=== PATIENT | male | born 1945 | race Caucasian/White ===

== ENCOUNTER 2025-01-06 22:01 | Inpatient (IN) | payer BC ==
[~2025-01-06] VITALS: Ht 182.9 cm; Wt 92.1 kg
[2025-01-06 23:12] LABS: SERUM AMMONIA 24 umol/L (11-32)
[2025-01-06 23:18] LABS: ALANINE AMINOTRANSFERASE 55 U/L (12-78); ALBUMIN 2.6 g/dL (3.4-5.0); ALKALINE PHOSPHATASE 240 U/L (46-116); ASPARTATE AMINOTRANSFERASE 210 U/L (15-37); BASOPHILS # (AUTO) 0.1 K/uL (0.0-0.2); BASOPHILS % (AUTO) 0.3 % (0.0-2.0); BILIRUBIN,DIRECT 3.3 mg/dL (0.0-0.2); BILIRUBIN,TOTAL 5.8 mg/dL (0.2-1.0); CARBON DIOXIDE 27 mmol/L (21-32); CHLORIDE 99 mmol/L (98-107); CREATININE 2.4 mg/dL (0.6-1.3); EOSINOPHILS # (AUTO) 0.2 K/uL (0.0-0.7); EOSINOPHILS % (AUTO) 0.7 % (0.0-6.0); GLUCOSE 134 mg/dL (74-106); HEMATOCRIT 43 % (39-51); LYMPHOCYTES # (AUTO) 2.7 K/uL (0.8-4.8); LYMPHOCYTES % (AUTO) 12.5 % (20.0-44.0); MEAN CORPUSCULAR HEMOGLOBIN 27 PG (26.0-33.0); MEAN CORPUSCULAR HGB CONC 33 g/dl (31.0-36.0); MEAN CORPUSCULAR VOLUME 83 fL (80-96); MONOCYTES # (AUTO) 1.6 K/uL (0.1-1.30); MONOCYTES % (AUTO) 7.6 % (2.0-12.0); NEUTROPHILS # (AUTO) 16.9 K/uL (1.8-8.9); NEUTROPHILS % (AUTO) 78.9 % (43.0-81.0); PLATELET COUNT (AUTO) 117 K/uL (150-450); POTASSIUM 3.7 mmol/L (3.5-5.1); RED BLOOD CELL COUNT(AUTO) 5.12 MIL/uL (4.5-6.0); RED CELL DISTRIBUTION WIDTH 14.8 % (11.5-15.0); SODIUM SERUM 140 mmol/L (136-145); WHITE BLOOD COUNT (AUTO) 21.4 K/uL (4.3-11.0)
[2025-01-06 23:19] LABS: APPEARANCE,URINE CLOUDY (CLEAR); BILIRUBIN,URINE 1+ (NEGATIVE); BLOOD, URINE 2+ Ery/uL (NEGATIVE); COLOR,URINE YELLOW (YELLOW); KETONES,URINE NEGATIVE (NEGATIVE); LEUKOCYTE ESTERASE ,URINE 3+ (NEGATIVE); NITRITE, URINE NEGATIVE (NEGATIVE); PROTEIN,URINE 1+ mg/dl (NEGATIVE); UGLUCOSE NEGATIVE (NEGATIVE)
[2025-01-06 23:21] LABS: LACTIC ACID 5.6 mmol/L (0.4-2.0); UREA NITROGEN, BLOOD 84 mg/dL (7-18)
[2025-01-06 23:24] LABS: INR 1.46 (0.91-1.10); PARTIAL THROMBOPLASTIN TIME 31.4 SEC (24.3-34.3); PROTHROMBIN TIME 15.1 SECS (9.2-11.1)
[2025-01-06 23:24] LABS: ADD URINE CULTURE YES; BACTERIA,URINE Many /HPF (None Seen); WBC,URINE 21-50 /HPF (0-3)
[2025-01-06 23:29] LABS: CALCIUM PHOSPHATE CRYSTALS,UR Few /HPF (None Seen); SQUAMOUS EPITHELIAL CELL,UR Few /HPF (None Seen); TRIPLE PHOSPHATE CRYSTAL,UR Few /HPF (None Seen)
[2025-01-06 23:33] LABS: AMPHETAMINE, URINE NEGATIVE (NEGATIVE); BARBITURATE, URINE NEGATIVE (NEGATIVE); BENZODIAZEPINE, URINE NEGATIVE (NEGATIVE); CANNABINOID, URINE NEGATIVE (NEGATIVE); COCCAINE, URINE NEGATIVE (NEGATIVE); OPIATE, URINE NEGATIVE (NEGATIVE); PHENCYCLIDINE SCREEN,URINE NEGATIVE (NEGATIVE)
[2025-01-07] MEDS: IV NS 0.9% 1,000 ML BAG IV ONE
[2025-01-07] MEDS ORDERED: CEFTRIAXONE 1GM BAG (ER ONLY) 1 GM/50 ML PIGGYBACK IV ONE
[2025-01-07] MEDS ORDERED: CEFTRIAXONE 1GM BAG (ER ONLY) 50 ML IV ONE (00:01)
[2025-01-07] MEDS ORDERED: CEFEPIME 1 GM VIAL ONE (00:13)
[2025-01-07] MEDS ORDERED: VANCOMYCIN 1 GM /D5W 250 ML PB IV ONE (00:14)
[2025-01-07] MEDS: CEFEPIME 1 GM in IV D5W 50 ML IV ONE (00:19)
[2025-01-07] MEDS: VANCOMYCIN 1 GM in IV D5W 250 ML IV ONE (00:50)
[2025-01-07 01:50] LABS: BASOPHILS % (MANUAL) 0 % (0.0-2.0); EOSINOPHILS % (MANUAL) 1 % (0-4); LYMPHOCYTES % (MANUAL) 11 % (16-48); MONOCYTES % (MANUAL) 7 % (0-11.0); NEUTROPHILS % (MANUAL) 81 (42-76); PLATELET ESTIMATE DECREASED
[2025-01-07] MEDS ORDERED: MAGNESIUM HYDROXIDE 30 ML UDC PO PRN (03:00)
[2025-01-07] MEDS ORDERED: ONDANSETRON HCL/PF 4 MG/2 ML VIAL IVP PRN (03:00)
[2025-01-07] MEDS ORDERED: MAG HYDROX/AL HYDROX/SIMETH 30 ML UDC PO PRN (03:00)
[2025-01-07] MEDS: IV NS 0.9% 1,000 ML IV SCH (07:21)
[2025-01-07] MEDS: VANCOMYCIN HCL 1.25 GM in IV D5W 250 ML IV ONE (07:36)
[2025-01-07 08:00] VITALS: BP 121/76; TEMP 97.5; O2SAT 99
[2025-01-07] MEDS: PANTOPRAZOLE 40 MG VIAL IV SCH (08:29)
[2025-01-07] MEDS: HEPARIN SODIUM, PORCINE 5000 UNITS/1 ML VIAL SQ SCH (08:30)
[2025-01-07 10:08] LABS: BASOPHILS # (AUTO) 0.1 K/uL (0.0-0.2); BASOPHILS % (AUTO) 0.5 % (0.0-2.0); EOSINOPHILS # (AUTO) 0.1 K/uL (0.0-0.7); EOSINOPHILS % (AUTO) 0.8 % (0.0-6.0); HEMATOCRIT 33 % (39-51); HEMOGLOBIN 11.2 g/dL (13.5-17.5); LYMPHOCYTES # (AUTO) 2.1 K/uL (0.8-4.8); LYMPHOCYTES % (AUTO) 13.4 % (20.0-44.0); MEAN CORPUSCULAR HEMOGLOBIN 29 PG (26.0-33.0); MEAN CORPUSCULAR HGB CONC 34 g/dl (31.0-36.0); MEAN CORPUSCULAR VOLUME 83 fL (80-96); MONOCYTES # (AUTO) 1.3 K/uL (0.1-1.30); MONOCYTES % (AUTO) 8.5 % (2.0-12.0); NEUTROPHILS # (AUTO) 12.2 K/uL (1.8-8.9); NEUTROPHILS % (AUTO) 76.8 % (43.0-81.0); PLATELET COUNT (AUTO) 84 K/uL (150-450); RED BLOOD CELL COUNT(AUTO) 3.92 MIL/uL (4.5-6.0); RED CELL DISTRIBUTION WIDTH 14.5 % (11.5-15.0); WHITE BLOOD COUNT (AUTO) 15.9 K/uL (4.3-11.0)
[2025-01-07 10:23] LABS: CALCIUM, SERUM 11.9 mg/dL (8.5-10.1); CREATININE 1.9 mg/dL (0.6-1.3); PHOSPHORUS 4.3 mg/dL (2.5-4.9); POTASSIUM 3.3 mmol/L (3.5-5.1)
[2025-01-07 11:11] LABS: BAND % (MANUAL) 2 % (0.0-5.0); EOSINOPHILS % (MANUAL) 1 % (0-4); LYMPHOCYTES % (MANUAL) 11 % (16-48); MONOCYTES % (MANUAL) 6 % (0-11.0); MYELOCYTES % 2 % (0-0); NEUTROPHILS % (MANUAL) 78 (42-76)
[2025-01-07 11:12] LABS: PLATELET ESTIMATE DECREASED
[2025-01-07 11:13] LABS: ANISOCYTOSIS 1+
[2025-01-07 12:00] VITALS: BP 123/77; TEMP 97.5; O2SAT 99
[2025-01-07 12:11] LABS: CREATININE, URINE 126.3 MG/DL (30.0-125.0); URINE TOTAL PROTEIN 91.2 mg/dL (0-11.9)
[2025-01-07] MEDS: CEFEPIME 1 GM in IV D5W 50 ML IV SCH (12:32)
[2025-01-07 16:00] VITALS: BP 119/71; TEMP 97.6; O2SAT 99
[2025-01-07] MEDS: POTASSIUM CHLORIDE 20 MEQ POWDER PACKET PO SCH (16:27)
[2025-01-07] MEDS: PAMIDRONATE 30 MG in IV NS 0.9% 500 ML IV ONE (16:28)
[2025-01-07] MEDS ORDERED: POTASSIUM CHLORIDE 20 MEQ POWDER PACKET NG SCH (16:30)
[2025-01-07 17:52] LABS: CALCIUM, SERUM 12.1 mg/dL (8.5-10.1); CREATININE 1.6 mg/dL (0.6-1.3); POTASSIUM 3.6 mmol/L (3.5-5.1)
[2025-01-07 17:57] LABS: FIBRINOGEN ACTIVITY 111 Mg/dL (213-485); INR 1.43 (0.91-1.10); PARTIAL THROMBOPLASTIN TIME 33.3 SEC (24.3-34.3); PROTHROMBIN TIME 14.8 SECS (9.2-11.1)
[2025-01-07 18:00] LABS: D-DIMER > 35.20 mg/L(FEU (0.17-0.50)
[2025-01-07 18:31] LABS: FREE PSA 77.82 ng/mL (0.00-45); PROSTATE SPECIFIC ANTIGEN SCR 532.23 ng/mL (0.00-4.00)
[2025-01-07 18:47] LABS: RHEUMATOID FACTOR SCREEN NEGATIVE (NEGATIVE)
[2025-01-07 20:00] VITALS: BP 127/67; TEMP 98.4; O2SAT 96
[2025-01-08] VITALS: BP 119/67; TEMP 98.4; O2SAT 95
[2025-01-08 01:10] VITALS: BP 134/71; TEMP 98.2
[2025-01-08 01:38] VITALS: BP 136/70; TEMP 98.4
[2025-01-08 03:25] VITALS: BP 140/62; TEMP 98.2
[2025-01-08 03:46] VITALS: BP 147/73; TEMP 98.4
[2025-01-08 04:00] VITALS: BP 148/65; TEMP 97.9; O2SAT 96
[2025-01-08] MEDS: METOPROLOL TARTRATE INJ 5 MG/5 ML AMPUL IVP ONE (05:02)
[2025-01-08] MEDS: IV NS 0.9% 1,000 ML IV PRN (05:55)
[2025-01-08 07:34] LABS: BILIRUBIN,TOTAL 2.9 mg/dL (0.2-1.0); CALCIUM, SERUM 11.6 mg/dL (8.5-10.1); CREATININE 1.4 mg/dL (0.6-1.3); MAGNESIUM 1.8 mg/dL (1.8-2.4); PHOSPHORUS 3.7 mg/dL (2.5-4.9); POTASSIUM 3.8 mmol/L (3.5-5.1)
[2025-01-08 07:35] LABS: FIBRINOGEN ACTIVITY 248 Mg/dL (213-485); INR 1.23 (0.91-1.10); PARTIAL THROMBOPLASTIN TIME 31.8 SEC (24.3-34.3); PROTHROMBIN TIME 12.9 SECS (9.2-11.1)
[2025-01-08 07:38] LABS: BASOPHILS % (AUTO) 0.1 % (0.0-2.0); EOSINOPHILS # (AUTO) 0.1 K/uL (0.0-0.7); EOSINOPHILS % (AUTO) 1.3 % (0.0-6.0); HEMATOCRIT 31 % (39-51); HEMOGLOBIN 10.5 g/dL (13.5-17.5); LYMPHOCYTES # (AUTO) 1.4 K/uL (0.8-4.8); LYMPHOCYTES % (AUTO) 14.1 % (20.0-44.0); MEAN CORPUSCULAR HEMOGLOBIN 28 PG (26.0-33.0); MEAN CORPUSCULAR HGB CONC 34 g/dl (31.0-36.0); MEAN CORPUSCULAR VOLUME 83 fL (80-96); MONOCYTES # (AUTO) 1.1 K/uL (0.1-1.30); MONOCYTES % (AUTO) 10.7 % (2.0-12.0); NEUTROPHILS # (AUTO) 7.4 K/uL (1.8-8.9); NEUTROPHILS % (AUTO) 73.8 % (43.0-81.0); PLATELET COUNT (AUTO) 69 K/uL (150-450); RED BLOOD CELL COUNT(AUTO) 3.71 MIL/uL (4.5-6.0); RED CELL DISTRIBUTION WIDTH 14.7 % (11.5-15.0); WHITE BLOOD COUNT (AUTO) 10.1 K/uL (4.3-11.0)
[2025-01-08 07:43] LABS: D-DIMER > 35.20 mg/L(FEU (0.17-0.50)
[2025-01-08] MEDS: FINASTERIDE (5 MG) 5 MG TABLET PO SCH (08:53)
[2025-01-08] MEDS ORDERED: VANCOMYCIN HCL 1.25 GM in IV D5W 250 ML IV SCH (09:00)
[2025-01-08 09:26] LABS: BAND % (MANUAL) 1 % (0.0-5.0); LYMPHOCYTES % (MANUAL) 16 % (16-48); NEUTROPHILS % (MANUAL) 72 (42-76)
[2025-01-08 09:27] LABS: EOSINOPHILS % (MANUAL) 2 % (0-4); METAMYELOCYTES % 1 % (0-0); MONOCYTES % (MANUAL) 7 % (0-11.0); MYELOCYTES % 1 % (0-0); PLATELET ESTIMATE DECREASED
[2025-01-08 09:28] LABS: ANISOCYTOSIS 1+
[2025-01-08] MEDS: VANCOMYCIN HCL 1.25 GM in IV D5W 250 ML IV SCH (11:08)
[2025-01-08] MEDS: SOTALOL AF 80 MG TABLET PO SCH (11:53)
[2025-01-08 14:09] LABS: HIV-1 p24 ANTIGEN NON REACTIVE (NONREACTIVE); HIV-1/2 ANTIBODY NON REACTIVE (NONREACTIVE)
[2025-01-08 15:40] LABS: OCCULT BLOOD STOOL NEGATIVE (NEGATIVE)
[2025-01-08] MEDS: PAMIDRONATE 30 MG in IV NS 0.9% 500 ML IV ONE (18:09)
[2025-01-08] MEDS: TAMSULOSIN 0.4 MG CAP.SR.24H PO SCH (21:53)
[2025-01-09 01:00] VITALS: BP 131/62; TEMP 97.5; O2SAT 96
[2025-01-09 04:36] VITALS: BP 128/71; TEMP 98.2; O2SAT 96
[2025-01-09 08:00] VITALS: BP 151/57; TEMP 98.1; O2SAT 97
[2025-01-09 08:03] LABS: BASOPHILS % (AUTO) 0.2 % (0.0-2.0); EOSINOPHILS # (AUTO) 0.2 K/uL (0.0-0.7); EOSINOPHILS % (AUTO) 1.8 % (0.0-6.0); HEMATOCRIT 32 % (39-51); HEMOGLOBIN 10.5 g/dL (13.5-17.5); LYMPHOCYTES # (AUTO) 1.2 K/uL (0.8-4.8); LYMPHOCYTES % (AUTO) 12.5 % (20.0-44.0); MEAN CORPUSCULAR HEMOGLOBIN 28 PG (26.0-33.0); MEAN CORPUSCULAR HGB CONC 33 g/dl (31.0-36.0); MEAN CORPUSCULAR VOLUME 84 fL (80-96); NEUTROPHILS # (AUTO) 7.5 K/uL (1.8-8.9); NEUTROPHILS % (AUTO) 75.5 % (43.0-81.0); PLATELET COUNT (AUTO) 68 K/uL (150-450); RED BLOOD CELL COUNT(AUTO) 3.76 MIL/uL (4.5-6.0); RED CELL DISTRIBUTION WIDTH 14.6 % (11.5-15.0); WHITE BLOOD COUNT (AUTO) 9.9 K/uL (4.3-11.0)
[2025-01-09 08:14] LABS: CALCIUM, SERUM 11.2 mg/dL (8.5-10.1); CREATININE 1.2 mg/dL (0.6-1.3); POTASSIUM 3.6 mmol/L (3.5-5.1)
[2025-01-09 08:19] LABS: FIBRINOGEN ACTIVITY 374 Mg/dL (213-485); PARTIAL THROMBOPLASTIN TIME 30.9 SEC (24.3-34.3); PROTHROMBIN TIME 12.6 SECS (9.2-11.1)
[2025-01-09 08:20] LABS: D-DIMER > 35.20 mg/L(FEU (0.17-0.50)
[2025-01-09] MEDS: ACETAMINOPHEN 325 MG TABLET PO PRN (10:41)
[2025-01-09 12:12] LABS: LYMPHOCYTES % (MANUAL) 20 % (16-48); MONOCYTES % (MANUAL) 5 % (0-11.0); MYELOCYTES % 4 % (0-0); NEUTROPHILS % (MANUAL) 71 (42-76); PLATELET ESTIMATE DECREASED
[2025-01-09 12:13] LABS: ANISOCYTOSIS 1+
[2025-01-09] MEDS ORDERED: IOHEXOL-300 100 ML VIAL IV ONE ×2 (14:24→19:06)
[2025-01-09] MEDS ORDERED: IV NS 0.9% 250 ML IV ONE ×2 (14:25→19:07)
[2025-01-09 16:00] VITALS: BP 106/63; TEMP 97.3; O2SAT 97
[2025-01-09 16:10] LABS: PTH, INTACT 6 pg/mL (15-65)
[2025-01-09] MEDS: PAMIDRONATE 30 MG in IV NS 0.9% 500 ML IV ONE (16:41)
[2025-01-09 20:00] VITALS: BP 128/66; TEMP 97.3; O2SAT 99
[2025-01-10 01:07] LABS: CANCER AG, 15-3 18.2 U/mL (0.0-25.0); CARCINOEMBRYONIC ANTIGEN (CEA) 1.3 ng/mL (0.0-4.7); FOLIC ACID 3.9 ng/mL (>3.0); HEPATITIS B SURFACE AB (QUAL) Non Reactive (.)
[2025-01-10 04:00] VITALS: BP 131/66; TEMP 98.6; O2SAT 99
[2025-01-10 06:10] LABS: IMMUNOGLOBULIN A, SERUM 412 mg/dL (61-437); IMMUNOGLOBULIN G, SERUM 1096 mg/dL (603-1613); IMMUNOGLOBULIN M, SERUM 194 mg/dL (15-143)
[2025-01-10 07:07] LABS: FREE KAPPA LT CHAINS SERUM 30.6 mg/L (3.3-19.4); KAPPA/LAMBDA RATIO SERUM 1.22 (0.26-1.65)
[2025-01-10 08:00] VITALS: BP 130/69; TEMP 98.2; O2SAT 98
[2025-01-10 08:13] LABS: CALCIUM, SERUM 10.5 mg/dL (8.5-10.1); CREATININE 1.2 mg/dL (0.6-1.3); POTASSIUM 3.9 mmol/L (3.5-5.1)
[2025-01-10] MEDS: PANTOPRAZOLE 40 MG TABLET.DR PO SCH (09:07)
[2025-01-10 09:53] LABS: BASOPHILS % (AUTO) 0.2 % (0.0-2.0); EOSINOPHILS # (AUTO) 0.2 K/uL (0.0-0.7); EOSINOPHILS % (AUTO) 2.1 % (0.0-6.0); HEMATOCRIT 33 % (39-51); HEMOGLOBIN 10.7 g/dL (13.5-17.5); LYMPHOCYTES # (AUTO) 1.3 K/uL (0.8-4.8); LYMPHOCYTES % (AUTO) 12.1 % (20.0-44.0); MEAN CORPUSCULAR HEMOGLOBIN 28 PG (26.0-33.0); MEAN CORPUSCULAR HGB CONC 33 g/dl (31.0-36.0); MEAN CORPUSCULAR VOLUME 84 fL (80-96); MONOCYTES # (AUTO) 1.1 K/uL (0.1-1.30); MONOCYTES % (AUTO) 10.2 % (2.0-12.0); NEUTROPHILS # (AUTO) 7.8 K/uL (1.8-8.9); NEUTROPHILS % (AUTO) 75.4 % (43.0-81.0); PLATELET COUNT (AUTO) 81 K/uL (150-450); RED BLOOD CELL COUNT(AUTO) 3.87 MIL/uL (4.5-6.0); RED CELL DISTRIBUTION WIDTH 14.4 % (11.5-15.0); WHITE BLOOD COUNT (AUTO) 10.4 K/uL (4.3-11.0)
[2025-01-10 12:00] VITALS: BP 131/66; TEMP 98.6; O2SAT 99
[2025-01-10 12:08] LABS: *ANA ANTI-CENTROMERE B AB <0.2 AI (0.0-0.9); *ANA ANTI-DNA(DS) AB, QN <1 IU/mL (0-9); *ANA ANTI-JO-1 <0.2 AI (0.0-0.9); *ANA ANTICHROMATIN ANTIBODY <0.2 AI (0.0-0.9); *ANA RNP ANTIBODIES 0.2 AI (0.0-0.9); *ANA SJOGREN'S ANTI-SS-A <0.2 AI (0.0-0.9); *ANA SJOGREN'S ANTI-SS-B <0.2 AI (0.0-0.9); *ANAANTI-SCLERODERMA-70 AB <0.2 AI (0.0-0.9); *ANASMITH AB <0.2 AI (0.0-0.9)
[2025-01-10 14:17] LABS: LYMPHOCYTES % (MANUAL) 11 % (16-48); MONOCYTES % (MANUAL) 8 % (0-11.0); MYELOCYTES % 2 % (0-0); NEUTROPHILS % (MANUAL) 79 (42-76); PLATELET ESTIMATE DECREASED
[2025-01-10 16:00] VITALS: BP 123/68; TEMP 99.2; O2SAT 97
[2025-01-10 20:00] VITALS: BP 133/82; TEMP 98.9; O2SAT 97
[2025-01-11 04:00] VITALS: BP 143/85; TEMP 98.7; O2SAT 95
[2025-01-11 07:35] LABS: BASOPHILS % (AUTO) 0.2 % (0.0-2.0); EOSINOPHILS # (AUTO) 0.2 K/uL (0.0-0.7); EOSINOPHILS % (AUTO) 1.9 % (0.0-6.0); HEMATOCRIT 29 % (39-51); HEMOGLOBIN 10.3 g/dL (13.5-17.5); LYMPHOCYTES # (AUTO) 1.2 K/uL (0.8-4.8); LYMPHOCYTES % (AUTO) 12.3 % (20.0-44.0); MEAN CORPUSCULAR HEMOGLOBIN 29 PG (26.0-33.0); MEAN CORPUSCULAR HGB CONC 35 g/dl (31.0-36.0); MEAN CORPUSCULAR VOLUME 83 fL (80-96); MONOCYTES % (AUTO) 10.1 % (2.0-12.0); NEUTROPHILS # (AUTO) 7.5 K/uL (1.8-8.9); NEUTROPHILS % (AUTO) 75.5 % (43.0-81.0); PLATELET COUNT (AUTO) 87 K/uL (150-450); RED BLOOD CELL COUNT(AUTO) 3.51 MIL/uL (4.5-6.0); RED CELL DISTRIBUTION WIDTH 14.8 % (11.5-15.0); WHITE BLOOD COUNT (AUTO) 9.9 K/uL (4.3-11.0)
[2025-01-11 07:58] LABS: ALBUMIN 1.6 g/dL (3.4-5.0); BILIRUBIN,TOTAL 1.6 mg/dL (0.2-1.0); CALCIUM, SERUM 9.2 mg/dL (8.5-10.1); MAGNESIUM 1.6 mg/dL (1.8-2.4); PHOSPHORUS 2.9 mg/dL (2.5-4.9); POTASSIUM 3.4 mmol/L (3.5-5.1); TOTAL PROTEIN, SERUM 5.6 g/dL (6.4-8.2)
[2025-01-11 08:00] VITALS: BP 135/70; TEMP 98.4; O2SAT 98
[2025-01-11] MEDS: POTASSIUM CL. PREMIX PERIPHER. 50 ML IV SCH (09:50)
[2025-01-11 09:52] LABS: EOSINOPHILS % (MANUAL) 1 % (0-4); LYMPHOCYTES % (MANUAL) 15 % (16-48); MONOCYTES % (MANUAL) 9 % (0-11.0); NEUTROPHILS % (MANUAL) 75 (42-76); PLATELET ESTIMATE DECREASED
[2025-01-11 09:53] LABS: ANISOCYTOSIS 1+
[2025-01-11] MEDS: Magnesium 1GM/D5W 100ML PREMIX 100 ML IV SCH (10:08)
[2025-01-11 10:43] LABS: INR 1.14 (0.91-1.10); PARTIAL THROMBOPLASTIN TIME 29.4 SEC (24.3-34.3); PROTHROMBIN TIME 11.6 SECS (9.2-11.1)
[2025-01-11] MEDS ORDERED: FENTANYL PF 250MCG/5ML AMPUL IV PRN (14:00)
[2025-01-11] MEDS ORDERED: NALOXONE PREFILLED SYRINGE 2 MG/2 ML SYRINGE IV PRN ×2 (14:00)
[2025-01-11] MEDS ORDERED: FLUMAZENIL 0.5 MG VIAL IV PRN ×2 (14:00)
[2025-01-11] MEDS ORDERED: MIDAZOLAM HCL 2 MG/2ML VIAL IV PRN (14:00)
[2025-01-11 14:26] LABS: D-DIMER 14.51 mg/L(FEU (0.17-0.50)
[2025-01-11 14:56] VITALS: BP 135/59; TEMP 98.4; O2SAT 99
[2025-01-11] MEDS: CEFTRIAXONE 1 G in IV D5W 50 ML IV SCH (18:29)
[2025-01-11 22:00] VITALS: BP_SYST 101; BP_SYST 135; BP_DIAS 59; BP_DIAS 70; TEMP 98.4; TEMP 99; O2SAT 100; O2SAT 99
[2025-01-12 07:18] LABS: BASOPHILS % (AUTO) 0.1 % (0.0-2.0); EOSINOPHILS # (AUTO) 0.1 K/uL (0.0-0.7); EOSINOPHILS % (AUTO) 1.5 % (0.0-6.0); HEMATOCRIT 31 % (39-51); HEMOGLOBIN 10.3 g/dL (13.5-17.5); LYMPHOCYTES # (AUTO) 1.1 K/uL (0.8-4.8); LYMPHOCYTES % (AUTO) 12.4 % (20.0-44.0); MEAN CORPUSCULAR HEMOGLOBIN 28 PG (26.0-33.0); MEAN CORPUSCULAR HGB CONC 33 g/dl (31.0-36.0); MEAN CORPUSCULAR VOLUME 84 fL (80-96); MONOCYTES # (AUTO) 0.8 K/uL (0.1-1.30); MONOCYTES % (AUTO) 8.9 % (2.0-12.0); NEUTROPHILS # (AUTO) 7.2 K/uL (1.8-8.9); NEUTROPHILS % (AUTO) 77.1 % (43.0-81.0); PLATELET COUNT (AUTO) 111 K/uL (150-450); RED BLOOD CELL COUNT(AUTO) 3.68 MIL/uL (4.5-6.0); RED CELL DISTRIBUTION WIDTH 14.6 % (11.5-15.0); WHITE BLOOD COUNT (AUTO) 9.3 K/uL (4.3-11.0)
[2025-01-12 08:00] VITALS: BP 142/74; TEMP 98.2; O2SAT 99
[2025-01-12 08:03] LABS: CARBON DIOXIDE 28 mmol/L (21-32); CHLORIDE 106 mmol/L (98-107); GLUCOSE 123 mg/dL (74-106); MAGNESIUM 1.8 mg/dL (1.8-2.4); SODIUM SERUM 138 mmol/L (136-145); UREA NITROGEN, BLOOD 30 mg/dL (7-18)
[2025-01-12 10:17] VITALS: BP 142/74
[2025-01-12] MEDS: ENSURE ENLIVE 237 ML LIQUID (VANILLA) PO SCH (10:18)
== END 2025-01-12 14:56 | DRG 871 ==
LOC: ER 22:26 → TELE1 01-07 04:18 → MEDSG1 01-09 09:44
PROVIDERS: ADMIT Nurse Practitioner Acute Care
PROC: 30233M1 Transfusion of Nonautologous Plasma Cryoprecipitate into Peripheral Vein, Percutaneous Approach (ICD-10-PCS; principal; 2025-01-07)
PROC: 0WBH3ZX Excision of Retroperitoneum, Percutaneous Approach, Diagnostic (ICD-10-PCS; 2025-01-11)
DX: A41.9 Sepsis, unspecified organism (principal); G92.8 Other toxic encephalopathy; N17.0 Acute kidney failure with tubular necrosis; J15.9 Unspecified bacterial pneumonia; J69.0 Pneumonitis due to inhalation of food and vomit; K83.1 Obstruction of bile duct; I13.0 Hypertensive heart and chronic kidney disease with heart failure and stage 1 through stage 4 chronic kidney disease, or unspecified chronic kidney disease; I48.20 Chronic atrial fibrillation, unspecified; E87.20 Acidosis, unspecified; D68.8 Other specified coagulation defects; M84.48XA Pathological fracture, other site, initial encounter for fracture; N13.6 Pyonephrosis; J98.11 Atelectasis; J90 Pleural effusion, not elsewhere classified; D61.818 Other pancytopenia; C79.51 Secondary malignant neoplasm of bone; Z59.01 Sheltered homelessness; R65.20 Severe sepsis without septic shock; R62.7 Adult failure to thrive; I50.9 Heart failure, unspecified; B96.89 Other specified bacterial agents as the cause of diseases classified elsewhere; H91.93 Unspecified hearing loss, bilateral; E83.52 Hypercalcemia; E88.09 Other disorders of plasma-protein metabolism, not elsewhere classified; M89.8X9 Other specified disorders of bone, unspecified site; N18.9 Chronic kidney disease, unspecified; N40.0 Benign prostatic hyperplasia without lower urinary tract symptoms; C61 Malignant neoplasm of prostate; R74.01 Elevation of levels of liver transaminase levels; L85.3 Xerosis cutis; Z93.0 Tracheostomy status; N63.0 Unspecified lump in unspecified breast; N13.9 Obstructive and reflux uropathy, unspecified
CPT/HCPCS: 36415; 70450-TC; 71045-TC; 71250-TC; 71260-TC; 72146-TC; 72148-TC; 76641-TC; 76770-TC; 77012-TC; 80048-TC; 80053-TC; 80076-TC; 80202-TC; 81001; 82140-TC; 82272-TC; 82378; 82550-TC; 82553; 82570-TC; 82607-TC; 82728-TC; 82784; 82962-TC; 83540-TC; 83605-TC; 83690-TC; 83735-TC; 83970; 84100-TC; 84153-TC; 84154-TC; 84155; 84165; 84300-TC; 84443-TC; 84484-TC; 85025-TC; 85396; 85730-TC; 86225; 86235; 86300; 86334; 86431-TC; 86706; 86803; 86850-TC; 87040-TC; 87081-TC; 87086-TC; 87186-TC; 87340; 87806; 93307-TC; 93970-TC; 97110-TC; 97116-TC; 97530-TC; 97535-TC; A4223; G0378; J0692; J0696; J1644; J2250; J2430; J2470; J3010; J3370; J3475; J3480; J3490; J7030; J7040; J7050; J7060; P9012; Q9967